=== PATIENT | male | born 1990 | race American Indian/Alaskan Native ===

== ENCOUNTER 2018-01-06 16:30 | Emergency (ER) | payer OTHER, BC ==
[2018-01-06 16:56] VITALS: BP 135/71
--- NOTE | 2018-01-06 20:28 | XRay Report ---
FINAL REPORT EXAM: XR SPINE CERVICAL 2-3V HISTORY: neck pain TECHNIQUE: Cervical spine five views PRIORS: None. FINDINGS: Vertebral bodies demonstrate normal height and alignment. The disk spaces are within normal limits. The facet joints demonstrate normal alignment. The spinous processes are intact. Craniocervical junction is unremarkable. C1 and C2 are intact. IMPRESSION: Negative cervical spine series.
[2018-01-06] MEDS ORDERED: MOTRIN PO ONE (20:36)
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
== END 2018-01-06 20:45 | disposition home or self-care (01) ==
LOC: ED 16:30
DX: S13.4XXA Sprain of ligaments of cervical spine, initial encounter (principal); V89.2XXA Person injured in unspecified motor-vehicle accident, traffic, initial encounter; Y93.89 Activity, other specified; Y99.8 Other external cause status; Y92.410 Unspecified street and highway as the place of occurrence of the external cause
CPT/HCPCS: 72040; 99283